=== PATIENT | female | born 1960 | race Caucasian/White ===

== ENCOUNTER 2018-10-12 16:20 | Inpatient (IN) | payer MEDICARE, MEDICAID ==
[~2018-10-12] VITALS: Ht 160 cm; Wt 75.7 kg
--- NOTE | 2018-10-12 16:49 | NUR ---
Blood drawn and sent to LAB
[2018-10-12 16:52] LABS: BASOPHILS # (AUTO) 0.1 K/uL (0.0-8.0); BASOPHILS % (AUTO) 0.9 % (0.0-2.0); EOSINOPHILS # (AUTO) 0.3 K/uL (0.0-0.7); EOSINOPHILS % (AUTO) 3.3 % (0.0-7.0); HEMATOCRIT 38.7 % (31.2-41.9); HEMOGLOBIN 13.5 g/dL (10.9-14.3); LYMPHOCYTES # (AUTO) 2.5 K/uL (20.0-40.0); LYMPHOCYTES % (AUTO) 29.6 % (20.5-51.5); MEAN CORPUSCULAR HEMOGLOBIN 32.5 uug (24.7-32.8); MEAN CORPUSCULAR HGB CONC 35 g/dL (32.3-35.6); MEAN CORPUSCULAR VOLUME 93.5 fL (75.5-95.3); MONOCYTES # (AUTO) 0.5 K/uL (2.0-10.0); MONOCYTES % (AUTO) 5.8 % (0.0-11.0); NEUTROPHILS % (AUTO) 60.4 % (38.5-71.5); PLATELET COUNT (AUTO) 242 K/uL (179-408); RED BLOOD CELL COUNT(AUTO) 4.14 MIL/uL (3.63-4.92); WHITE BLOOD COUNT (AUTO) 8.4 K/uL (3.8-11.8)
[2018-10-12 17:04] LABS: CARBON DIOXIDE 26 mmol/L (21-32); CHLORIDE 107 mmol/L (98-107); CREATININE 0.5 mg/dL (0.6-1.3); GLUCOSE 112 mg/dL (74-106); POTASSIUM 3.4 mmol/L (3.5-5.1); UREA NITROGEN, BLOOD 8 mg/dL (7-18)
--- NOTE | 2018-10-12 17:05 | NUR ---
Patient given fluids as she states she cannot urinate until fluids are given.
[2018-10-12 17:07] LABS: ETHANOL 16 MG/DL (0-0)
[2018-10-12] MEDS ORDERED: HALO5TAB PO (17:16)
[2018-10-12] MEDS ORDERED: ATOR20TA PO (17:16)
[2018-10-12] MEDS ORDERED: OLAN10TA23 PO (17:16)
[2018-10-12] MEDS ORDERED: LITH300C2 PO (17:16)
[2018-10-12] MEDS ORDERED: DIVA-78 PO (17:16)
[2018-10-12] MEDS ORDERED: TRIH5TAB2 PO (17:16)
[2018-10-12] MEDS ORDERED: EZET10TA15 PO (17:16)
[2018-10-12 17:18] LABS: ALANINE AMINOTRANSFERASE 13 U/L (14-59); ALKALINE PHOSPHATASE 86 U/L (50-136); ASPARTATE AMINOTRANSFERASE 9 U/L (15-37); BILIRUBIN,DIRECT 0.1 mg/dL (0.0-0.2); BILIRUBIN,TOTAL 0.2 mg/dL (0.2-1.0)
[2018-10-12 17:22] LABS: ACETAMINOPHEN < 2.0 ug/mL (10-30)
--- NOTE | 2018-10-12 17:33 | NUR ---
voided, spec sent to lab
--- NOTE | 2018-10-12 17:35 | NUR ---
Dr Calvillo medically cleared pt.
[2018-10-12 17:48] LABS: *BILIRUBIN,URIN NEGATIVE (NEGATIVE); *BLOOD, URINE NEGATIVE (NEGATIVE); *CLARITY,URINE SLIGHTLY CLOUDY (CLEAR); *COLOR,URINE YELLOW (YELLOW); *KETONES,URINE TRACE (NEGATIVE); *UROBILINOGEN,URINE 0.2 E.U./dl (NORMAL); LEUKOCYTE ESTERASE ,URINE 1+ (NEGATIVE); NITRITE, URINE NEGATIVE (NEGATIVE); UGLUCOSE NEGATIVE (NEGATIVE)
[2018-10-12 17:58] LABS: *AMPHETAMINE, URINE NEGATIVE (NEGATIVE); *BARBITURATE, URINE NEGATIVE (NEGATIVE); *CANNABINOID, URINE NEGATIVE (NEGATIVE); *COCCAINE, URINE NEGATIVE (NEGATIVE); *OPIATE, URINE NEGATIVE (NEGATIVE); *PHENCYCLIDINE SCREEN,URINE NEGATIVE (NEGATIVE)
[2018-10-12 18:04] LABS: RBC,URINE 0-3 /HPF (0-3)
[2018-10-12 18:08] LABS: BACTERIA,URINE FEW /HPF (NONE SEEN)
[2018-10-12 18:09] LABS: SQUAMOUS EPITHELIAL CELL,UR MODERATE /HPF (NONE SEEN)
--- NOTE | 2018-10-12 19:15 | NUR ---
Report received from laura RN. Patient to be admitted to MHU room 145 B for Psychosis. Sitter at bedside.
--- NOTE | 2018-10-12 19:30 | NUR ---
Patient wandering around, looking for her belongings; advised appropriately.
--- NOTE | 2018-10-12 19:45 | NUR ---
Report given to
--- NOTE | 2018-10-12 20:06 | NUR ---
Pt. admitted to MHU room 145B, under care of Dr. Moser Belongs List completed.
[2018-10-12 21:00] VITALS: BP 148/86
[2018-10-12] MEDS ORDERED: MAG HYDROX/AL HYDROX/SIMETH 30 ML LIQUID UDC PO PRN (21:30)
[2018-10-12] MEDS ORDERED: LORAZEPAM 0.5 MG TABLET PO PRN (21:30)
[2018-10-12] MEDS ORDERED: MAGNESIUM HYDROXIDE 30 ML LIQUID UDC PO PRN (21:30)
[2018-10-12] MEDS: ACETAMINOPHEN 325 MG TABLET PO PRN (22:03)
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
--- NOTE | 2018-10-13 06:30 | NUR ---
slept 9 hours. is now awake. was initially resistant to take a shower, but did take, with some encouragement. currently watching tv. no distress noted.
[2018-10-13] MEDS: HALOPERIDOL 5 MG TABLET PO SCH ×2 (08:29→16:38)
[2018-10-13] MEDS: DIVALPROEX 250 MG TABLET.DR PO SCH ×3 (08:29→16:38)
[2018-10-13] MEDS: LITHIUM CARBONATE 300 MG CAPSULE PO SCH ×2 (08:29→21:00)
[2018-10-13] MEDS: OLANZAPINE 5 MG TABLET PO SCH ×2 (08:30→21:00)
[2018-10-13] MEDS: NICOTINE 21 MG/24HR PATCH TD SCH (08:34)
[2018-10-13 16:00] VITALS: BP 147/81
--- NOTE | 2018-10-13 17:42 | NUR ---
GPS: received patient asleep on bed, easily irritable, AOx3-4, compliant with medication, however needed some prompting, patient calm and cooperative, verbalizing on concern on how long will she stay in the unit, educate patient regarding the plan of care , patient acknowledge, will continue monitor
[2018-10-13] MEDS: ACETAMINOPHEN 325 MG TABLET PO PRN (18:35)
[2018-10-13] MEDS: ATORVASTATIN 20 MG TABLET PO SCH (21:00)
[2018-10-13] MEDS: EZETIMIBE 10 MG TABLET PO SCH (21:00)
--- NOTE | 2018-10-13 22:00 | NUR ---
received to care, lying in bed, with covers over her face, refused vital signs, and all medications offered. stated she would "not take any medications, until she was given either artane, or tylenol #3" when this hand sign writer told her that these medications are both very different from each other, she stated that "they both prevent side effects" reality orientation atempted, but she remains very fixed in her beliefs. she was then encouraged to take her other medications, ordered for hyperlipidemia. she stated that they make her "sick" she was told that they are her medications, prescribed before she was admitted here. she continued to refuse. she was encouraged to discuss issue hartley=ith the psychiatrist, tomorrow, and that her medications were still available, if she changes her mind. she said she would not. as of 2199, she appears to be asleep. no distress noted. will continue to monitor closely.
--- NOTE | 2018-10-14 06:33 | NUR ---
slept 8 hours. continues to sleep. no distress noted.
[2018-10-14 07:30] VITALS: BP 151/70
[2018-10-14] MEDS: HALOPERIDOL 5 MG TABLET PO SCH ×2 (08:33→16:15)
[2018-10-14] MEDS: DIVALPROEX 250 MG TABLET.DR PO SCH ×3 (08:33→16:15)
[2018-10-14] MEDS: OLANZAPINE 5 MG TABLET PO SCH ×2 (08:33→21:12)
[2018-10-14] MEDS: LITHIUM CARBONATE 300 MG CAPSULE PO SCH ×2 (08:33→21:13)
[2018-10-14] MEDS: NICOTINE 21 MG/24HR PATCH TD SCH (08:34)
--- NOTE | 2018-10-14 11:13 | NUR ---
Initial Discharge Plan: Patient is currently living at [facility] [address] [place]; [phone]]. Per Gas Engine Operator Compressors at [facility], patient will be accepted back to facility upon discharge. Patient is agreeable with this plan. Scrap Piler will continue to meet with patietn and collaborate with patient and MD on a safe and proper discharge plan.
[2018-10-14 16:00] VITALS: BP 156/91
--- NOTE | 2018-10-14 17:42 | NUR ---
GPS: received patient AOx4, patient remain isolative and withdrawn, needs prompting in giving medication, patient compliant with medication after explaining the benefit of her meds, patient asking about her "artane and tylenol #3, notified Dr. Franklin about patient concern, seen by Dr. Moser, patient denies SI and Hi, redirectable, will continue monitor
[2018-10-14 20:00] VITALS: BP 133/73
[2018-10-14] MEDS: ATORVASTATIN 20 MG TABLET PO SCH (21:12)
[2018-10-14] MEDS: EZETIMIBE 10 MG TABLET PO SCH (21:14)
[2018-10-15 07:30] VITALS: BP 101/82
[2018-10-15] MEDS: NICOTINE 21 MG/24HR PATCH TD SCH (09:00)
[2018-10-15] MEDS: DIVALPROEX 250 MG TABLET.DR PO SCH ×3 (09:24→17:42)
[2018-10-15] MEDS: OLANZAPINE 5 MG TABLET PO SCH ×2 (09:24→20:59)
[2018-10-15] MEDS: HALOPERIDOL 5 MG TABLET PO SCH ×2 (09:24→17:41)
[2018-10-15] MEDS: LITHIUM CARBONATE 300 MG CAPSULE PO SCH ×2 (09:24→21:00)
[2018-10-15 16:00] VITALS: BP 146/89
[2018-10-15 20:23] VITALS: BP 145/86
[2018-10-15] MEDS: ATORVASTATIN 20 MG TABLET PO SCH (20:59)
[2018-10-15] MEDS: EZETIMIBE 10 MG TABLET PO SCH (20:59)
[2018-10-16 07:30] VITALS: BP 127/77
[2018-10-16 07:43] LABS: BASOPHILS % (AUTO) 0.5 % (0.0-2.0); EOSINOPHILS # (AUTO) 0.3 K/uL (0.0-0.7); EOSINOPHILS % (AUTO) 3.3 % (0.0-7.0); HEMATOCRIT 38.3 % (31.2-41.9); HEMOGLOBIN 13.1 g/dL (10.9-14.3); LYMPHOCYTES # (AUTO) 1.8 K/uL (20.0-40.0); LYMPHOCYTES % (AUTO) 19.5 % (20.5-51.5); MEAN CORPUSCULAR HEMOGLOBIN 32.3 uug (24.7-32.8); MEAN CORPUSCULAR HGB CONC 34 g/dL (32.3-35.6); MEAN CORPUSCULAR VOLUME 94.3 fL (75.5-95.3); MONOCYTES # (AUTO) 0.6 K/uL (2.0-10.0); MONOCYTES % (AUTO) 6.8 % (0.0-11.0); NEUTROPHILS # (AUTO) 6.3 K/uL (1.8-8.9); NEUTROPHILS % (AUTO) 69.9 % (38.5-71.5); PLATELET COUNT (AUTO) 233 K/uL (179-408); RED BLOOD CELL COUNT(AUTO) 4.06 MIL/uL (3.63-4.92); WHITE BLOOD COUNT (AUTO) 9.1 K/uL (3.8-11.8)
[2018-10-16 07:49] LABS: THYROID STIMULATING HORMONE 2.592 mIU/mL (0.358-3.740)
[2018-10-16 08:06] LABS: BILIRUBIN,TOTAL 0.4 mg/dL (0.2-1.0); CREATININE 0.6 mg/dL (0.6-1.3); MAGNESIUM 2.1 mg/dL (1.8-2.4); PHOSPHOROUS 3.9 mg/dL (2.5-4.9); POTASSIUM 3.8 mmol/L (3.5-5.1); TOTAL PROTEIN, SERUM 6.6 g/dL (6.4-8.2)
[2018-10-16] MEDS: NICOTINE 21 MG/24HR PATCH TD SCH (09:22)
[2018-10-16] MEDS: LITHIUM CARBONATE 300 MG CAPSULE PO SCH ×2 (09:22→21:00)
[2018-10-16] MEDS: HALOPERIDOL 5 MG TABLET PO SCH ×2 (09:22→17:00)
[2018-10-16] MEDS: DIVALPROEX 250 MG TABLET.DR PO SCH ×3 (09:22→17:00)
[2018-10-16] MEDS: OLANZAPINE 5 MG TABLET PO SCH ×2 (09:22→21:00)
[2018-10-16 16:00] VITALS: BP 130/74
[2018-10-16] MEDS: ACETAMINOPHEN 325 MG TABLET PO PRN (20:47)
[2018-10-16] MEDS: ATORVASTATIN 10 MG TABLET PO SCH (21:00)
[2018-10-16 21:23] VITALS: BP 159/93
--- NOTE | 2018-10-16 22:00 | NUR ---
received to care, appearing anxious, but pleasant upon approach. refused all medications scheduled. stated she "only wants artane" PRN tylenol given at 2046 for neck pain, which was resolved by 2129. as of 2199, she appears to be asleep. no distress noted.
--- NOTE | 2018-10-17 05:00 | NUR ---
slept 0.5 hours, total. has been awake, in bed, but calm. continues to refuse any po medications. occasionally paces the hallway. no distress noted.
[2018-10-17 07:30] VITALS: BP 156/84
[2018-10-17] MEDS: LITHIUM CARBONATE 300 MG CAPSULE PO SCH ×2 (08:52→20:43)
[2018-10-17] MEDS: DIVALPROEX 250 MG TABLET.DR PO SCH ×3 (08:52→17:00)
[2018-10-17] MEDS: HALOPERIDOL 5 MG TABLET PO SCH ×2 (08:52→17:00)
[2018-10-17] MEDS: OLANZAPINE 5 MG TABLET PO SCH ×2 (08:53→20:43)
[2018-10-17] MEDS: NICOTINE 21 MG/24HR PATCH TD SCH (08:57)
[2018-10-17 16:00] VITALS: BP 154/85
[2018-10-17] MEDS: ATORVASTATIN 10 MG TABLET PO SCH (20:43)
[2018-10-17 20:59] VITALS: BP 162/91
--- NOTE | 2018-10-17 21:00 | NUR ---
Received patient alert and oriented x2, person and place. Calm and cooperative with care. Denies SI/AVH. Compliant with medication. Reinforced plan of care and teaching about medication. Will continue to monitor behavior and medication effectiveness.
[2018-10-18 07:30] VITALS: BP 139/89
[2018-10-18] MEDS: NICOTINE 21 MG/24HR PATCH TD SCH (09:00)
[2018-10-18] MEDS: OLANZAPINE 5 MG TABLET PO SCH ×2 (09:07→20:35)
[2018-10-18] MEDS: LITHIUM CARBONATE 300 MG CAPSULE PO SCH ×2 (09:08→20:35)
[2018-10-18] MEDS: HALOPERIDOL 5 MG TABLET PO SCH ×2 (09:08→16:18)
[2018-10-18] MEDS: DIVALPROEX 250 MG TABLET.DR PO SCH ×3 (09:08→16:18)
[2018-10-18 16:00] VITALS: BP 127/71
[2018-10-18] MEDS: TRIHEXYPHENIDYL HCL 2 MG TABLET PO PRN (16:18)
[2018-10-18] MEDS: ATORVASTATIN 10 MG TABLET PO SCH (20:35)
[2018-10-18 20:53] VITALS: BP 131/79
[2018-10-19 08:30] VITALS: BP 125/69
[2018-10-19] MEDS: OLANZAPINE 5 MG TABLET PO SCH ×2 (08:55→20:26)
[2018-10-19] MEDS: TRIHEXYPHENIDYL HCL 2 MG TABLET PO PRN ×3 (08:55→17:04)
[2018-10-19] MEDS: LITHIUM CARBONATE 300 MG CAPSULE PO SCH ×2 (08:55→20:26)
[2018-10-19] MEDS: HALOPERIDOL 5 MG TABLET PO SCH ×2 (08:55→16:54)
[2018-10-19] MEDS: DIVALPROEX 250 MG TABLET.DR PO SCH ×3 (08:55→16:54)
[2018-10-19] MEDS: NICOTINE 21 MG/24HR PATCH TD SCH (08:59)
[2018-10-19 15:59] VITALS: BP 182/102
[2018-10-19] MEDS: ATORVASTATIN 10 MG TABLET PO SCH (20:26)
[2018-10-19 20:42] VITALS: BP 142/70
[2018-10-20] MEDS: TEMAZEPAM 7.5 MG CAPSULE PO PRN ×2 (01:46→22:32)
[2018-10-20 07:57] VITALS: BP 106/58
[2018-10-20] MEDS: DIVALPROEX 250 MG TABLET.DR PO SCH ×3 (08:22→16:57)
[2018-10-20] MEDS: MULTIVITAMINS,THERAPEUTIC TABLET PO SCH (08:22)
[2018-10-20] MEDS: LITHIUM CARBONATE 300 MG CAPSULE PO SCH ×2 (08:22→20:53)
[2018-10-20] MEDS: OLANZAPINE 5 MG TABLET PO SCH ×2 (08:22→20:53)
[2018-10-20] MEDS: HALOPERIDOL 5 MG TABLET PO SCH ×2 (08:22→16:57)
[2018-10-20] MEDS: NICOTINE 21 MG/24HR PATCH TD SCH (08:23)
[2018-10-20] MEDS: TRIHEXYPHENIDYL HCL 2 MG TABLET PO PRN (08:54)
[2018-10-20 15:57] VITALS: BP 164/86
[2018-10-20 20:00] VITALS: BP 161/90
[2018-10-20] MEDS: ATORVASTATIN 10 MG TABLET PO SCH (20:53)
[2018-10-20] MEDS: ACETAMINOPHEN 325 MG TABLET PO PRN (20:55)
--- NOTE | 2018-10-20 22:00 | NUR ---
received to care, pleasant upon approach. compliant with medications and staff direction. as of 2199, she remains awake, in bed. no dsitress noted.
--- NOTE | 2018-10-20 22:32 | NUR ---
PRN restoril, given for insomnia.
--- NOTE | 2018-10-20 23:50 | NUR ---
REMAINS AWAKE. PRN ATIVAN, GIVEN FOR ANXIETY.
--- NOTE | 2018-10-21 06:00 | NUR ---
slept 6.5 hours, total. continues to sleep. no distress noted.
[2018-10-21 07:30] VITALS: BP 147/91
[2018-10-21] MEDS: LITHIUM CARBONATE 300 MG CAPSULE PO SCH ×2 (08:22→20:32)
[2018-10-21] MEDS: DIVALPROEX 250 MG TABLET.DR PO SCH ×3 (08:22→17:04)
[2018-10-21] MEDS: OLANZAPINE 5 MG TABLET PO SCH ×2 (08:22→20:32)
[2018-10-21] MEDS: HALOPERIDOL 5 MG TABLET PO SCH ×2 (08:22→17:04)
[2018-10-21] MEDS: MULTIVITAMINS,THERAPEUTIC TABLET PO SCH (08:23)
[2018-10-21 16:00] VITALS: BP 148/96
--- NOTE | 2018-10-21 16:36 | NUR ---
FIREARMS REPORT: Hearing Aid Specialist completed and submitted a [employer] firearms report for [address] Disability certification. A copy of report has been placed in patient chart.
[2018-10-21] MEDS: ATORVASTATIN 10 MG TABLET PO SCH (20:32)
[2018-10-21 21:04] VITALS: BP 129/70
--- NOTE | 2018-10-22 05:40 | NUR ---
Patient slept 6 hours so far and remains asleep at this time. No acute distress noted. Uneventful night.
[2018-10-22 07:30] VITALS: BP 128/80
[2018-10-22] MEDS: MULTIVITAMINS,THERAPEUTIC TABLET PO SCH (08:36)
[2018-10-22] MEDS: DIVALPROEX 250 MG TABLET.DR PO SCH ×3 (08:36→16:22)
[2018-10-22] MEDS: LITHIUM CARBONATE 300 MG CAPSULE PO SCH (08:36)
[2018-10-22] MEDS: HALOPERIDOL 5 MG TABLET PO SCH ×2 (08:36→16:22)
[2018-10-22] MEDS: OLANZAPINE 5 MG TABLET PO SCH (08:36)
--- NOTE | 2018-10-22 08:56 | NUR ---
Discharge Note: [facility] [[address] [place] [address]; Ph. [phone]].Please arrange ambulance for this patient for slat pickler by 12:00pm. Spoke to Alyssa, Operation Research Analyst � who stated facility is ready to accept patient today. Per Alyssa, there is no next of kin identified for this patient. Patient�s chart does not include any next of kin contact and patient is unable to provide a contact number. Patient is alert and oriented x3-4. Patient will follow up with Dr. Hang Chen (Mental Health Clinician) and Dr. Rosaline Vasquez (Psychiatrist). Patient was provided with outpatient mental health resources to [facility] , and the [place] [facility] . Patient was also provided with a brief substance abuse intervention and referred to [facility] , [facility] , and [facility] .
--- NOTE | 2018-10-22 11:38 | NUR ---
Gps/Manager Storage Called [facility] informed of patient dc. plan this pm. Also prescriptions faxed to [facility] as requested, original prescriptions will send original prescriptions with pt. upon discharged. patient was well informed of her dc. plan this pm.
[2018-10-22] MEDS: TRIHEXYPHENIDYL HCL 2 MG TABLET PO PRN (14:12)
[2018-10-22 16:00] VITALS: BP 106/83
--- NOTE | 2018-10-22 16:05 | NUR ---
Gps/Reed Dipper- Called ambulance , follow up on schedule 1530 hand picker w/ ticket # [id number] claimed the ambulance Crew are running late with their last transport, ambulance will be late for approximately 45 minutes.Charged Nurse tries to called Nusing Bicycle I Assembler [place] to informed.
--- NOTE | 2018-10-22 17:20 | NUR ---
Gps/Hat Stock Laminating Machine Operator- Ambulance in to picker / packer patient, all belongings given back to patient. No distress, no complaints noted.
== END 2018-10-22 17:20 | DRG 885 ==
LOC: ER 16:20 → GPS 19:54
PROVIDERS: ADMIT Psychiatry & Neurology Psychiatry; ATTEND Internal Medicine
DX: F20.0 Paranoid schizophrenia (principal); N39.0 Urinary tract infection, site not specified; Y90.0 Blood alcohol level of less than 20 mg/100 ml; Z91.14 Patient's other noncompliance with medication regimen; R46.0 Very low level of personal hygiene; E87.6 Hypokalemia; E78.5 Hyperlipidemia, unspecified; E66.9 Obesity, unspecified; Z68.29 Body mass index [BMI] 29.0-29.9, adult; F10.129 Alcohol abuse with intoxication, unspecified; F17.210 Nicotine dependence, cigarettes, uncomplicated; Z79.899 Other long term (current) drug therapy
CPT/HCPCS: 36415; 80307; 83735; 84100; 84443; 85025; 87086; A4663; G0480; G0480-TC; J3490